=== PATIENT | female | born 1945 | race Caucasian/White ===

== ENCOUNTER → 2023-04-22 12:36 | Outpatient (REF) | payer OTHER, SELFPAY | LOC: WDC 12:36 | PROVIDERS: ATTENDING PHYSICIAN Internal Medicine | DX: Z12.31 Encounter for screening mammogram for malignant neoplasm of breast (principal) | CPT/HCPCS: 77063; 77067 ==

== ENCOUNTER → 2023-04-26 10:24 | Outpatient (REF) | payer OTHER, SELFPAY | LOC: RAD 10:24 | PROVIDERS: ATTENDING PHYSICIAN Surgery Vascular Surgery; FAMILY PHYSICIAN Internal Medicine | DX: I87.2 Venous insufficiency (chronic) (peripheral) (principal) | CPT/HCPCS: 93970 ==

== ENCOUNTER → 2023-10-12 09:15 | Outpatient (REF) | payer OTHER, SELFPAY | LOC: HWEVLT 09:15 | PROVIDERS: ATTENDING PHYSICIAN Radiology Diagnostic Radiology | DX: I83.891 Varicose veins of right lower extremity with other complications (principal) | CPT/HCPCS: 36478; C1769 ==

== ENCOUNTER → 2023-10-26 11:10 | Outpatient (REF) | payer OTHER, SELFPAY | LOC: HWEVLT 11:10 | PROVIDERS: ATTENDING PHYSICIAN Radiology Diagnostic Radiology | DX: I83.891 Varicose veins of right lower extremity with other complications (principal) | CPT/HCPCS: 93971 ==

== ENCOUNTER → 2023-10-28 14:20 | Outpatient (REF) | payer OTHER, SELFPAY | LOC: HWEVLT 14:20 | PROVIDERS: ATTENDING PHYSICIAN Radiology Diagnostic Radiology | DX: I83.891 Varicose veins of right lower extremity with other complications (principal) | CPT/HCPCS: 93971 ==

== ENCOUNTER → 2023-11-09 09:42 | Outpatient (REF) | payer OTHER, SELFPAY | LOC: HWEVLT 09:42 | PROVIDERS: ATTENDING PHYSICIAN Radiology Diagnostic Radiology | DX: I83.892 Varicose veins of left lower extremity with other complications (principal) | CPT/HCPCS: 93971 ==

== ENCOUNTER 2023-11-09 11:24 | Emergency (ER) | payer OTHER, SELFPAY ==
[2023-11-09 11:44] VITALS: BP 133/60
[2023-11-09 12:00] VITALS: BP 98/83
[2023-11-09 12:06] LABS: Hematocrit 37.3 % (37.0-47.0); Hemoglobin 12.6 g/dL (12.0-16.0); Mean Corp Hgb Conc. 33.8 g/dL (33.0-37.0); Mean Corpuscular Hgb 31.7 pg (27.0-31.0); Mean Platelet Volume 10.3 fL (7.4-10.4); Platelet Count 169 10^3/uL (130-400); Red Blood Cell Count 3.97 10^6/uL (4.20-5.40); Red Cell Dist. Width 13.2 % (11.5-14.5); White Blood Cell Count 11.3 10^3/uL (4.8-10.8)
[2023-11-09 12:15] LABS: ALT (SGPT) 18 U/L (0-35); AST (SGOT) 26 U/L (14-36); Albumin 3.8 g/dl (3.5-5.0); Alkaline Phosphatase 94 U/L (38-126); Blood Urea Nitrogen 18 mg/dl (7-17); Calcium 9.6 mg/dl (8.4-10.2); Carbon Dioxide 26 mmol/L (22-30); Chloride 102 mmol/L (98-107); Glucose 99 mg/dl (70-99); Potassium 4.4 mmol/L (3.5-5.1); Sodium 139 mmol/L (135-145); Total Bilirubin 0.8 mg/dl (0.2-1.3); Total Protein 7.3 g/dl (6.3-8.2); eGFR > 60.00
[2023-11-09 12:26] LABS: Troponin I < 0.012 ng/ml
--- NOTE | 2023-11-09 12:31 | ED.GENMED ---
History of Present Illness
<Elaina Thao PA-C - Last Filed: 11/09/23 18:51>
General
Chief Complaint: Chest Pain
Source: patient
Exam Limitations: none
Time Seen by Provider: 11/09/23 11:36
Nursing documentation reviewed up to this point in time: agreed with
History of Present Illness
History of Present Illness:
The patient is a 78-year-old female presenting to the emergency department from [facility] for evaluation of acute onset chest pain during vein ablation occurring approximately 1 to 2 hours prior to arrival. At this time�patient is
asymptomatic and feeling much better and at her baseline. Patient describes a pain in her mid chest that lasted about 3 to 5 minutes. She does report some pain in her lower back which resolved after they shifted her position on the table. Patient
denies any associated shortness of breath, diaphoresis, nausea/vomiting, dizziness. Patient at this time is asymptomatic and back to her baseline.
Procedure note reviewed. It appears that during the procedure patient abruptly sat up and was complaining of midsternal chest pain. They stopped procedure and called 911.
Patient denies any history of CAD or heart disease. She does follow with a apple thinner at [place].
Patient has had a similar vein ablation done on her right lower extremity without any complications
Past History
<Elaina Thao PA-C - Last Filed: 11/09/23 18:51>
Past History
ED Past Medical History: Other
ED Past Surgical History: Orthopedic (Right hip replacement ) and Other (Thyroidectomy)
Social History
Tobacco: Non-smoker
Alcohol: Daily
Drug: None
Personal:
Living: alone
Employment: Employed
Family History
Family History: Other (Noncontributory )
Review of Systems
<Elaina Thao PA-C - Last Filed: 11/09/23 18:51>
Review of Systems
Allergies reviewed?: Yes
All Other Systems: ROS reviewed and negative except as documented in HPI and ROS
Phy Exam
<Elaina Thao PA-C - Last Filed: 11/09/23 18:51>
Physical Exam
Physical Exam:
Vitals: Patient's vital signs are stable. Afebrile
General: Patient is very well appearing, no acute distress. Resting comfortably in
Skin: Warm and dry, no rashes or lesions
Head: Normocephalic, atraumatic
Eyes: Sclera nonicteric. EOMs intact. No nystagmus.
Throat: Protecting airway
Neck: Normal ROM, no cervical spine tenderness, no meningismus. Trachea midline. No JVD
Cardiac: Regular rate and rhythm, no murmurs. Anterior wall nontender to palpation
Pulm: Normal respiratory effort, no wheezes, rales, rhonchi heard on exam.
Abdomen: Abdomen soft. No abdominal tenderness.
Extremities: No evidence of cyanosis or edema. Great and equal palpable distal pulse in bilateral upper and lower extremities.
Neuro: Grossly intact.
Psychiatric: Normal affect.
Scores
<Elaina Thao PA-C - Last Filed: 11/09/23 18:51>
Heart Score for Chest Pain Patients
STEMI patient?: No
History: Moderately Suspicious
ECG: Normal
Age: >/= 65 years
Risk Factors: 1 or 2 Risk Factors
Troponin: </= Normal Limit
Heart Score for Chest Pain Patients: 4
Heart Score Risk: 20.3% MACE over next 6 weeks
Course
<Elaina Thao PA-C - Last Filed: 11/09/23 18:51>
Orders/Labs/Results
Orders:
Orders
11/09/23 11:27
EKG [Electrocardiogram (*1)] Urgent
Reason for Study: Chest Pain
EKG- Treatment ONCE
11/09/23 11:42
Complete Blood Count/With Diff Urgent
Comprehensive Metabolic Panel Urgent
Troponin I Urgent
11/09/23 12:06
CR Chest - 2 Views Urgent
Comment:
Reason For Exam: substernal chest pain
11/09/23 12:45
Acetaminophen [Tylenol] 650 mg PO NOW STA
11/09/23 12:54
Acetaminophen [Tylenol Oral Solution] 650 mg .ROUTE .STK-MED ONE
11/09/23 13:00
Acetaminophen [Tylenol Oral Solution] 650 mg PO NOW STA
11/09/23 14:31
Troponin I Urgent
11/09/23 14:45
Electrocardiogram (*1) Urgent
Reason for Study: Chest Pain
EKG- Treatment ONCE
Abnormal Lab Results
11/09/23
11:42
WBC 11.3 H 10^3/uL
(4.8-10.8)
RBC 3.97 L 10^6/uL
(4.20-5.40)
MCH 31.7 H pg
(27.0-31.0)
Abs Immat Gran (auto) 1.0 H 10^3/uL
(0-0.05)
Absolute Neuts (auto) 8.7 H 10^3/uL
(1.4-6.5)
Immature Gran % 8.6 H %
(0-0.5)
Neutrophils % 77.0 H %
(42.2-75.2)
Lymphocytes % 11.3 L %
(20.5-51.1)
Monocytes % 1.4 L %
(1.7-9.3)
BUN 18 H mg/dl
(7-17)
11/09/23 11:42
11/09/23 11:42
Vital Signs
Initial and Last Documented VS:
Initial Vital Signs
Temp Pulse Resp BP Pulse Ox
98.2 F 92 17 133/60 95
11/09/23 11:44 11/09/23 11:44 11/09/23 11:44 11/09/23 11:44 11/09/23 11:44
Last Documented Vital Signs
Temp Pulse Resp BP Pulse Ox
98.2 F 71 25 123/76 100
11/09/23 11:44 11/09/23 16:00 11/09/23 16:00 11/09/23 16:00 11/09/23 16:00
<Marcos Keenan MD - Last Filed: 11/09/23 13:07>
Orders/Labs/Results
Orders:
Orders
11/09/23 11:27
EKG [Electrocardiogram (*1)] Urgent
Reason for Study: Chest Pain
EKG- Treatment ONCE
11/09/23 11:42
Complete Blood Count/With Diff Urgent
Comprehensive Metabolic Panel Urgent
Troponin I Urgent
11/09/23 12:06
CR Chest - 2 Views Urgent
Comment:
Reason For Exam: substernal chest pain
11/09/23 12:45
Acetaminophen [Tylenol] 650 mg PO NOW STA
11/09/23 12:54
Acetaminophen [Tylenol Oral Solution] 650 mg .ROUTE .STK-MED ONE
11/09/23 13:00
Acetaminophen [Tylenol Oral Solution] 650 mg PO NOW STA
11/09/23 14:31
Troponin I Urgent
11/09/23 14:45
Electrocardiogram (*1) Urgent
Reason for Study: Chest Pain
EKG- Treatment ONCE
Abnormal Lab Results
11/09/23
11:42
WBC 11.3 H 10^3/uL
(4.8-10.8)
RBC 3.97 L 10^6/uL
(4.20-5.40)
MCH 31.7 H pg
(27.0-31.0)
Abs Immat Gran (auto) 1.0 H 10^3/uL
(0-0.05)
Absolute Neuts (auto) 8.7 H 10^3/uL
(1.4-6.5)
Immature Gran % 8.6 H %
(0-0.5)
Neutrophils % 77.0 H %
(42.2-75.2)
Lymphocytes % 11.3 L %
(20.5-51.1)
Monocytes % 1.4 L %
(1.7-9.3)
BUN 18 H mg/dl
(7-17)
11/09/23 11:42
11/09/23 11:42
Vital Signs
Initial and Last Documented VS:
Initial Vital Signs
Temp Pulse Resp BP Pulse Ox
98.2 F 92 17 133/60 95
11/09/23 11:44 11/09/23 11:44 11/09/23 11:44 11/09/23 11:44 11/09/23 11:44
Last Documented Vital Signs
Temp Pulse Resp BP Pulse Ox
98.2 F 71 25 123/76 100
11/09/23 11:44 11/09/23 16:00 11/09/23 16:00 11/09/23 16:00 11/09/23 16:00
<Elaina Thao PA-C - Last Filed: 11/09/23 18:51>
MDM/Problems Addressed
Differential Diagnosis Includes:
Not limited to: Muscle strain, GERD, ACS, anxiety, doubt PE or aortic dissection
MDM/Problems Addressed:
78-year-old female presenting for EMS from [facility] due to 5-minute episode of substernal chest pain occurring during pain ablation procedure about an hour prior to arrival. Patient asymptomatic at this time. No history of CAD. Symptoms
were not associated with any shortness of breath, nausea, vomiting, diaphoresis, severe back pain. Symptoms did resolve and patient is feeling at her baseline at this time. Vital stable. Patient is well-appearing, in no apparent respiratory
distress. Patient is nontoxic-appearing. Heart regular rate and rhythm. Lungs clear bilaterally. Patient is perfusing well with palpable and equal distal pulses in bilateral upper and lower extremities. Lower extremities without any edema or
tenderness. Unclear etiology of chest pain at this time although will rule out ACS. Do not suspect PE given patient is not hypoxic, not tachycardic, reports complete improvement in symptoms. She does not endorse any shortness of breath. Will
check labs, trend troponin, check chest x-ray. Initial EKG nonischemic. Will closely monitor patient and reassess
Chronic conditions affecting care:
N/A
Acute Exacerbation and/or Progression of Chronic Illness:
N/A
<Elaina Thao PA-C - Last Filed: 11/09/23 18:51>
*Radiology
Radiology exam reviewed: preliminary read by ED provider and radiology read reviewed
*Pulse Oximetry
Patient hypoxic: no
*EKG
Interpreted by ED Provider?: Yes
EKG Intrepretation Date: 11/09/23
Interpretation: normal
Comparison EKG: no comparison EKG present
Heart Rate: 94
Rate: normal
Rhythm: sinus
[place]: normal axis
Interval: normal interval
QRS Pattern: normal QRS
Ischemia: no ischemia
*Stencil Maker Interpretation
Rate: normal
Interpretation: normal
Heart Rate: 84
Rhythm: sinus
*Critical Care Note
Total Time (30-74mins, 75-104mins- exclusive of procedures): Not Applicable
Data Reviewed
Review of Other/Old Records Reveals: Testing (Procedure note from vein ablation documented by Rajeev Suh MD)
<Elaina Thao PA-C - Last Filed: 11/09/23 18:51>
Update Note
Update Note:
Update: Labs reviewed. No clinically significant abnormalities. Initial troponin is negative. Will repeat troponin in 3 hours. Chest x-ray shows no acute abnormalities. Patient remains asymptomatic and very stable
Update: Repeat troponin negative. Patient has remained asymptomatic and hemodynamically stable throughout duration emergency department. She is conversational with a steady gait. Unclear cause of chest pain at this time although no evidence of
ACS given 2 negative troponins and nonischemic EKGs. Patient remains asymptomatic and stable for discharge with close primary care and cardiology follow-up. Patient comfortable with plan. Patient seen with attending physician.
ED Attending Note
<Elaina Thao PA-C - Last Filed: 11/09/23 18:51>
-
Portions of this chart may have been created with voice recognition software.� Occasional wrong word or��sound alike� substitutions may have occurred due to the inherent limitations of voice recognition software.
<Marcos Keenan MD - Last Filed: 11/09/23 13:07>
ED Attending Note
Patient seen and examined by attending physician: Yes
I performed the substantive portion of visit, reviewed & personally made and approve the management plan that is documented in note by myself or OTTO.: Yes
ED Attending Note:
Patient is a 78-year-old woman presenting to the emergency department with chest pain. Patient was getting ablation at the [facility] went in the beginning of the procedure she developed sudden onset midsternal chest pain. Lasted about 3 to 5
minutes. It then resolved. She denied any shortness of breath. The pain did intermittently moved to her left lower back. They moved her to her side which resolved the pain. No history of chest pain. No nausea or vomiting. No fevers or chills.
No unilateral leg swelling travel malignancy or hemoptysis. Is currently back to feeling like her baseline. Vitals were unremarkable and exam shows a woman who is resting comfortably with regular rate and rhythm on auscultation. No reproducible
chest wall tenderness. Unclear etiology of chest pain however will rule out ACS. History and exam not consistent with PE as she is not hypoxic tachycardic and currently has no complaints. Initial EKG per my interpretation without any ST
elevation. Will obtain chest x-ray. Patient will need delta troponin. Anticipate discharge if it is normal.
Discharge Plan
Departure
Patient Disposition: Home (Routine Discharge)
Date of Disposition: 11/09/23
Time of Disposition: 15:29
Patient with high blood pressure during this ER visit?: No
Condition: Good
Covid-19: Not Applicable
Discharge Problem:
Chest pain
Instructions: Chest pain
Prescriptions:
No Action
multivitamin [Daily Vitamin] 1 EACH tablet
1 ea PO DAILY
aspirin [Aspir-Low] 81 MG tablet,delayed release (DR/EC)
81 mg PO DAILY
acetaminophen [Children's Acetaminophen] 160 MG/5 ML suspension
650 mg PO DAILY
phenazopyridine 100 MG tablet
100 mg PO TIDPRN PRN (Reason: BLADDER SPASM, PRESSURE) Qty: 15 0RF
ciprofloxacin [Cipro] 500 MG/5 ML suspension,microcapsule recon
500 mg PO BID Qty: 70 0RF
Referrals:
Darcy Malcolm MD [Family Provider] - Follow up in 5-7 days
Activity Restrictions/Additional Instructions:
RETURN TO THE EMERGENCY DEPARTMENT WITH CHEST PAIN, SEVERE BACK PAIN, SHORTNESS OF BREATH, DIZZINESS/LIGHTHEADEDNESS, FEVERS, WORSENING IN CURRENT SYMPTOMS, OR ANY OTHER CONCERNS
-As discussed�it is important to stay well hydrated.
-You should follow-up with your apple thinner in a week or so for further evaluation/management. With any return of chest pain, shortness of breath please return to the emergency department
-You should discuss with your apple thinner and vascular provider regarding repeating procedure that was performed today.
Monitor your symptoms closely and return to the emergency department with any acute worsening/new symptoms.
Interventions
Interventions:
*Risk Screen - Suicide Last Done: 11/09/23 12:05
*General Assessment Last Done: 11/09/23 12:05
*Neglect/Abuse Screening Last Done: 11/09/23 15:40
ED- Fall Risk Assessment Last Done: 11/09/23 12:05
*ED COVID-19 Vaccine History Last Done: 11/09/23 15:40
*Nursing Disposition Last Done: 11/09/23 16:19
ED- Cardiac Assessment Last Done: 11/09/23 12:05
Discharge Date and Time
Discharge Date/Time: 11/09/23 16:32
Print Language: BENGALI
[2023-11-09 12:36] LABS: % Basophils 0.4 % (0-2); % Eosinophils 1.3 % (0-6); % Immature Granulocytes 8.6 % (0-0.5); % Lymphocytes 11.3 % (20.5-51.1); % Monocytes 1.4 % (1.7-9.3); Absolute Eosinophils 0.2 10^3/uL (0-0.7); Absolute Lymphocytes 1.3 10^3/uL (1.2-3.4); Absolute Monocytes 0.2 10^3/uL (0.1-0.6); Absolute Neutrophils 8.7 10^3/uL (1.4-6.5); Nucleated Red Blood Cells % 0 %
[2023-11-09] MEDS: TYLENOL ORAL SOLUTION 650 MG PO (13:00)
[2023-11-09 15:01] LABS: Troponin I < 0.012 ng/ml
[2023-11-09 15:27] VITALS: BP 127/73
[2023-11-09 16:00] VITALS: BP 123/76
== END 2023-11-09 16:32 | disposition home or self-care (01) ==
LOC: EMR 11:24
PROVIDERS: Emergency Medicine; Physician Assistant; EMERGENCY PHYSICIAN Student in an Organized Health Care Education/Training Program; FAMILY PHYSICIAN Internal Medicine
DX: R07.2 Precordial pain (principal); M54.50 Low back pain, unspecified; K52.89 Other specified noninfective gastroenteritis and colitis; M19.90 Unspecified osteoarthritis, unspecified site; E07.9 Disorder of thyroid, unspecified; Z96.641 Presence of right artificial hip joint; Z85.828 Personal history of other malignant neoplasm of skin; Z88.1 Allergy status to other antibiotic agents; Z88.0 Allergy status to penicillin
CPT/HCPCS: 99284; 71046; 80053; 84484; 85025; 93005

== ENCOUNTER → 2023-12-17 07:28 | Outpatient (REF) | payer OTHER, SELFPAY | LOC: DHCBC/DCA 07:28 | PROVIDERS: ATTENDING PHYSICIAN Student in an Organized Health Care Education/Training Program; FAMILY PHYSICIAN Internal Medicine | DX: R07.2 Precordial pain (principal) | CPT/HCPCS: 78452; 93017; A9500 ==

== ENCOUNTER → 2024-04-25 12:12 | Outpatient (REF) | payer OTHER, SELFPAY | LOC: WDC 12:12 | PROVIDERS: ATTENDING PHYSICIAN Obstetrics & Gynecology Gynecology; FAMILY PHYSICIAN Internal Medicine | DX: Z12.31 Encounter for screening mammogram for malignant neoplasm of breast (principal) | CPT/HCPCS: 77063; 77067 ==